=== PATIENT | female | born 1975 | race Caucasian/White ===

== ENCOUNTER → 2017-07-29 | Outpatient (CLI) | payer BC ==
[2017-07-29 09:17] LABS: Cholesterol 196 mg/dL (<200); Glucose 85 mg/dL (74-99); HDL Cholesterol 28 mg/dL (40-60); LDL Cholesterol,Calculated 123 mg/dL (0-99); Triglycerides 225 mg/dL (<150)
== END | disposition home or self-care (01) ==
LOC: LABWHC1 07:51
PROVIDERS: ATTEND Obstetrics & Gynecology
DX: Z13.21 Encounter for screening for nutritional disorder (principal)
CPT/HCPCS: 36415; 80061; 82306; 82947

== ENCOUNTER → 2017-07-30 | Outpatient (CLI) | payer BC ==
--- NOTE | 2017-07-30 08:00 | MM ---
Reason for exam: additional evaluation requested from prior study. Last mammogram was performed 1 year and 9 months ago. History: Reductions of both breasts, 2001. Took hormonal contraceptives for 13 years beginning at age 15. Physical Findings: Nurse did not find any significant physical abnormalities on exam. MG Diagnostic Mammo w CAD JASEN Bilateral CC and MLO view(s) were taken. Prior study comparison: October 19, 2015, left breast MG work up mamm w CAD LT. October 12, 2015, bilateral MG screening mammo w CAD. The breast tissue is heterogeneously dense. This may lower the sensitivity of mammography. There are benign appearing bilateral calcifications. No significant new findings when compared with previous films. These results were verbally communicated with the patient and result sheet given to the patient on 07/30/17. ASSESSMENT: Benign, BI-RAD 2 RECOMMENDATION: Routine screening mammogram of both breasts in 1 year.
== END | disposition home or self-care (01) ==
LOC: RADMAMWWP 07:01
PROVIDERS: ATTEND Obstetrics & Gynecology
DX: R92.8 Other abnormal and inconclusive findings on diagnostic imaging of breast (principal)
CPT/HCPCS: 77066

== ENCOUNTER → 2020-11-10 | Outpatient (CLI) | payer BC ==
--- NOTE | 2020-11-13 09:40 | MM ---
Reason for exam: screening (asymptomatic). Last mammogram was performed 3 years and 3 months ago. History: Reductions of both breasts, 2001. Took hormonal contraceptives for 13 years beginning at age 15. Physical Findings: A clinical breast exam by your physician is recommended on an annual basis and results should be correlated with mammographic findings. MG 3D Screening Mammo W/Cad Bilateral CC and MLO view(s) were taken. Prior study comparison: July 30, 2017, bilateral MG diagnostic mammo w CAD JASEN. October 12, 2015, bilateral MG screening mammo w CAD. The breast tissue is heterogeneously dense. This may lower the sensitivity of mammography. No significant changes when compared with prior studies. ASSESSMENT: Benign, BI-RAD 2 RECOMMENDATION: Routine screening mammogram of both breasts in 1 year.
== END | disposition home or self-care (01) ==
LOC: RADMAMWWP 07:10
PROVIDERS: ATTEND Obstetrics & Gynecology
DX: Z12.31 Encounter for screening mammogram for malignant neoplasm of breast (principal)
CPT/HCPCS: 77063; 77067